=== PATIENT | female | born 1990 | race Two or more races ===

== ENCOUNTER 2018-08-05 19:47 | Emergency (ER) | payer SELFPAY ==
[2018-08-05 20:01] VITALS: BP 127/88; PULSE 88; RESP 18; TEMP 98.2; O2SAT 99
[2018-08-05] MEDS ORDERED: Oxycodone/Acetaminophen 5/325 mg Tab PO STA (20:50)
[2018-08-05] MEDS ORDERED: Tdap Vaccine 0.5 ml Vial (10-64 yrs) IM ONE ×2 (20:50→21:37)
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
[2018-08-05] MEDS ORDERED: Oxycodone/Acetaminophen 5/325 mg Tab ONE (21:09)
== END 2018-08-05 22:17 | disposition home or self-care (01) ==
LOC: H.ER 19:47
DX: T23.002A Burn of unspecified degree of left hand, unspecified site, initial encounter (principal); X15.3XXA Contact with hot saucepan or skillet, initial encounter

== ENCOUNTER 2018-10-01 20:01 | Emergency (ER) | payer OTHER ==
[2018-10-01 20:17] VITALS: RESP 16; TEMP 98.1
[2018-10-01 21:32] LABS: BASO # 0.1 K/uL (0.0-0.2); BASO % 1.3 % (0.0-2.0); EOS # 0.1 K/uL (0.0-0.7); HEMOGLOBIN 11.5 g/dL (12.0-16.0); LYMPH # 2.7 K/uL (1.0-4.3); LYMPH % 30.4 % (20.0-40.0); MEAN CELL VOLUME 85.5 fl (81.0-99.0); MEAN CORPUSCULAR HEMOGLOBIN 28.4 pg (27.0-31.0); MEAN CORPUSCULAR HGB CONC 33.2 g/dL (33.0-37.0); MEAN PLATELET VOLUME 8.2 fl (7.2-11.7); MONO # 0.8 K/uL (0.0-0.8); MONO % 8.9 % (0.0-10.0); NEUT # 5.2 K/uL (1.8-7.0); NEUT % 58.4 % (50.0-75.0); RBC 4.04 Mil/uL (3.80-5.20); RED CELL DISTRIBUTION WIDTH 13.3 % (11.5-14.5); WHITE BLOOD COUNT 8.8 K/uL (4.8-10.8)
[2018-10-01 21:48] LABS: BLOOD UREA NITROGEN 21 mg/dl (7-17); CALCIUM 9.6 mg/dL (8.4-10.2); GFR NON-AFRICAN AMERICAN > 60
--- NOTE | 2018-10-01 22:14 | ED PDOC ---
HPI: General Adult Time Seen by Provider: 10/01/18 20:32 Chief Complaint (Nursing): ENT Problem History Per: Patient History/Exam Limitations: no limitations Onset/Duration Of Symptoms: Days Have you had recent travel within the past 21 days to any of the following countries: [place], [place], [place] or [place]?: No Additional Complaint(s): 28 year old with no PMHx presenting with sore throat. States that 4 months ago she was diagnosed with muscle spasm on the R side of her neck. States that it was posterior neck at the time. States that one week ago she was having sore throat, fevers, sweats and was diagnosed at an Urgent Care with strep throat and was placed on Amoxicillin 500mg BID x 10 days. States that the next day she saw her primary care doctor and was told her tonsils looked normal and that she should only take the antibiotics for 7 days, which she finished today. States that today she woke up with more pain in her throat and had more difficulty swallowing then before. No fevers today, chills, sweats, or other symptoms. Denies STD exposures. Past Medical History Reviewed: Historical Data, Nursing Documentation, Vital Signs Vital Signs: Last Vital Signs Temp 98.1 F 10/01/18 20:12 Pulse 82 10/01/18 20:12 Resp 16 10/01/18 20:12 BP 108/70 10/01/18 20:12 Pulse Ox 100 10/01/18 20:12 - Medical History PMH: No Chronic Diseases - Family History Family History: States: Hypertension Other Family History: [place] - Immunization History Hx Tetanus Toxoid Vaccination: No (unknown last tetanus) - Home Medications Home Medications: Ambulatory Orders Medication Instructions Recorded Acetaminophen with Codeine 1 each PO Q6 #10 tablet 08/05/18 [Tylenol with Codeine #3 Tablet] Silver Sulfadiazine 1% 50 gm 1 ea TOP BID #1 jar 08/05/18 [Silvadene 1% 50 gm] Clindamycin [Cleocin] 300 mg PO TID 7 Days cap 10/02/18 - Allergies Allergies/Adverse Reactions: Allergies Allergy/AdvReac Type Severity Reaction Status Date / Time No Known Allergies Allergy Verified 10/01/18 20:12 Review of Systems ROS Statement: Except As Marked, All Systems Reviewed And Found Negative ENT: Positive for: Throat Pain Physical Exam - Reviewed Nursing Documentation Reviewed: Yes Vital Signs Reviewed: Yes - Physical Exam Appears: Positive for: Well, Non-toxic, No Acute Distress Head Exam: Positive for: ATRAUMATIC, NORMAL INSPECTION, NORMOCEPHALIC Skin: Positive for: Normal Color, Warm, DRY Eye Exam: Positive for: EOMI, Normal appearance, PERRL ENT: Positive for: Normal ENT Inspection, Pharynx Is (normal) Neck: Negative for: Normal (Tener to palpation in mid-neck on R side, no swelling/erythema) Cardiovascular/Chest: Positive for: Regular Rate, Rhythm Respiratory: Positive for: CNT, Normal Breath Sounds Gastrointestinal/Abdominal: Positive for: Normal Exam, Soft Back: Positive for: Normal Inspection Extremity: Positive for: Normal ROM Neurological/Psych: Positive for: Awake, Alert, Normal Tone - Laboratory Results Result Diagrams: 10/01/18 21:28 10/01/18 21:28 - ECG O2 Sat by Pulse Oximetry: 100 Pulse Ox Interpretation: Normal Medical Decision Making Medical Decision Making: A/P: Hx of pharyngitis on ABx presenting with continued sore throat --Patient appears well, no respiratory distress, normal vitals --Will get CT neck to rule out abscess formation given chronicity of symptoms --Labs/mono/strep pending --Toradol and solumedrol for symptomatic care Time: 001 EXAM: CT Neck with Intravenous Contrast. CLINICAL HISTORY: Right sided neck pain, sore throat TECHNIQUE: Axial computed tomography images of the neck with intravenous contrast. Sagittal and coronal reformatted images were generated. 211.36 mGy-cm CONTRAST: With; [id number] 90ML COMPARISON: None provided. FINDINGS: SOFT TISSUES: In the right lateral submandibular subcutaneous soft tissues and along the right lateral margin of the submandibular salivary gland, right lateral margin of the sternocleidomastoid muscle, terminating at the level of the right thyroid lobe; there is identified subtle haziness thought compatible with fasciitis. No subcutaneous emphysema is detected; but nevertheless, non gas forming necrotizing fasciitis must be considered. No subcutaneous abscess formation identified. PHARYNX: Unremarkable appearance of the nasopharynx, oropharyx, and hypopharynx. No pharyngeal mucosal based mass lesions. LARYNX: Normal appearance of the larynx. Unremarkable epiglottis. RETROPHARYNGEAL SPACE: No retropharyngeal soft tissue swelling or gas. SALIVARY GLANDS: Unremarkable appearance of the parotid, submandibular, and sublingual glands. LYMPH NODES: No significant lymphadenopathy. THYROID: The thyroid gland is unremarkable. No nodule is evident. BONES: No acute osseous abnormality. No aggressive appearing osseous lesion. IMPRESSION: 1. Findings as described above involving the right lateral neck suspicious for fasciitis. The possibility of [id number] necrotizing fasciitis must be considered. Electronically signed on Oct 02, 2018 12:16:36 AM EDT by: Tessa Burrell M.D., Certified by ABR, MSK, Neuroradiology Time: 0016 -- Spoke with Dr. Echavarria who is in disagreement with CT findings however recommends Clindamycin and will attempt to reach radiology for further clarification of CT findings. Provider recommends OBS for deterioration in the ED. Time: 300 --Patient states that she is feeling better. Vitals are normal, patient appears well Time: 600 --Spoke with Dr. Levine of radiology who states that CT is likely promotions representative of cellulitis and not fasciitis --Case discussed again with Dr. Echavarria who states that if patient appears well, can be discharged to followup today --Patient very well appearing and anxious to leave ER, will prescribe clindamycin as per Dr. Echavarria (along with probiotics) --Patient instructed to followup with Dr. Bauer office today. Discharged at 615AM Time: 1900 --I called the patient to check up on her and she states she's feeling well and that she saw Dr. Echavarria and was scoped --I informed the patient of the new reading by Dr. Alvarenga --I informed her that she may have hyperthyroidism but it may be reactive from the cellulitis, advised the patient should get an ultrasound and repeat bloodwork including thyroid panel in one month; patient states that she already received this information from Dr. Echavarria except the bloodwork, states she will followup Scribe Attestation: Documented by Irene Gomez, acting as a scribe for Jaswant Saba MD. Provider Scribe Attestation: All medical record entries made by the Scribe were at my direction and personally dictated by me. I have reviewed the chart and agree that the record accurately reflects my personal performance of the medical decision making for this patient. I have also personally directed, reviewed, and agree with the discharge instructions and disposition. Disposition - Clinical Impression Clinical Impression: Cellulitis of pharynx - Patient ED Disposition Is Patient to be Admitted: No Discussed With Dr.: Bernnan Echavarria Doctor Will See Patient In The: Office Counseled Patient/Family Regarding: Studies Performed, Diagnosis, Need For Followup, Rx Given - Disposition Referrals: Brennan Echavarria MD [Staff Provider] - Disposition: Routine/Home Disposition Time: 06:30 Condition: IMPROVED Prescriptions: Clindamycin [Cleocin] 300 mg PO TID 7 Days cap Instructions: Sore Throat, Adult (DC) Forms: [facility] (Kiswahili), [facility] ED School/Work Excuse
[2018-10-01] MEDS ORDERED: Iohexol 300 100 ML IJ ONE (22:52)
[2018-10-01] MEDS ORDERED: Sodium Chloride 0.9% 50 ML IV ONE (22:52)
[2018-10-02 01:26] LABS: VENOUS BLOOD GAS PCO2 36 mmHg (40-60); VENOUS BLOOD GAS PO2 40 mm/Hg (30-55); VENOUS BLOOD PH 7.46 (7.32-7.43)
[2018-10-02] MEDS ORDERED: Clindamycin 600mg/50ml D5W 600 MG/50 ML VIAL IVPB STA (01:42)
[2018-10-02] MEDS ORDERED: Sodium Chloride 0.9% 1,000 ML IV STA (03:11)
[2018-10-02 06:42] VITALS: BP 117/39; PULSE 101
[2018-10-02 06:54] VITALS: O2SAT 100
--- NOTE | 2018-10-02 12:16 | CT ---
Date of service: 10/01/2018 PROCEDURE: CT NECK WITH CONTRAST HISTORY: Right-sided neck pain, sore throat COMPARISON: None available. TECHNIQUE: CT of the neck with intravenous contrast. Coronal and sagittal reformats generated. Intravenous contrast dose: 90 cc Omnipaque 300 contrast material. The Radiation dose: Total exam DLP = 211.36 mGy-cm. This CT exam was performed using one or more of the following dose reduction techniques: Automated exposure control, adjustment of the mA and/or kV according to patient size, and/or use of iterative reconstruction technique. FINDINGS: The examination is limited due to cut off of most of the anterior facial soft tissues including most of the orbits and anterior margins of the maxillary sinuses. NASOPHARYNX: Unremarkable. SUPRAHYOID NECK: Unremarkable oropharynx, oral cavity, parapharyngeal space and retropharyngeal space. INFRAHYOID NECK: Unremarkable larynx, hypopharynx, and supraglottic space. Vocal cords intact. MASS: No large cervical mass or collection. GLANDS: Parotid and submandibular glands appear grossly unremarkable with no evidence of masses collections or calcifications. Right lobe thyroid gland is slightly enlarged and exhibits heterogeneous attenuation. LYMPH NODES: Multiple nonspecific small bilateral cervical lymph nodes. CERVICAL SPINE: No fracture or focal lesion. There is mild kyphotic angulation deformity centered at the C5-C6 level with straightening of the normal cervical lordosis above this level likely due to patient positioning in the gantry. VASCULAR STRUCTURES: Unremarkable. OTHER FINDINGS: Some very minimal infiltration changes seen in the subcutaneous fat right cheek extending over the sternocleidomastoid muscle and inferior premaxillary region however note that most of the of facial soft tissues have been excluded from this study due to poor patient positioning IMPRESSION: Limited study due to poor patient positioning with exclusion of most of the anterior facial soft tissues including most of the orbits and anterior margins of both maxillary antra. Findings suggest mild cellulitis involving the subcutaneous tissues of the right cheek extending superiorly into the inferior margin of the visualized pre maxillary soft tissues no drainable abscess collections. This study should probably be repeated with proper patient positioning to evaluate the facial soft tissues. Mildly enlarged heterogeneous right lobe thyroid gland. Follow-up thyroid ultrasound recommended.
== END 2018-10-02 07:33 | disposition home or self-care (01) ==
LOC: H.ER 20:01
DX: J39.1 Other abscess of pharynx (principal)
CPT/HCPCS: 70491; 80048; 81025; 82803; 84436; 84443; 85025; 86308; 86664; 86665; 87040; 87070; 87430; 96361; 96365; 96375; 99283; J2930; J7030; Q9967